=== PATIENT | male | born 1965 | race Caucasian/White ===

== ENCOUNTER → 2018-09-22 | Outpatient (CLI) | payer BC ==
[2018-09-22 10:53] LABS: HCT 46.5 % (39.0-53.0); HGB 15.5 gm/dL (13.0-17.5); MCH 30.6 pg (25.0-35.0); MCHC 33.3 g/dL (31.0-37.0); Mean Platelet Volume 7.9; Platelet Count 195 k/uL (150-450); RBC 5.05 m/uL (4.30-5.90); RDW 13.9 % (11.5-15.5); WBC 6.3 k/uL (3.8-10.6)
[2018-09-22 16:27] LABS: Albumin 4.7 g/dL (3.80-4.90); Albumin/Globulin Ratio 2.76 (1.60-3.17); Anion Gap 4.9 mmol/L (4.00-12.00); Calcium 8.8 mg/dL (8.7-10.3); Carbon Dioxide 29.1 mmol/L (21.6-31.8); Globulin 1.7 g/dL (1.6-3.3); LDL Cholesterol,Calculated 136.4 mg/dL (0.0-131.0); Potassium 4.3 mmol/L (3.5-5.5); Total Bilirubin 0.4 mg/dL (0.2-1.2); Total Protein 6.4 g/dL (6.2-8.2); VLDL Calculation 15.6 mg/dL (5.00-40.00)
== END ==
LOC: LABWHC1 09:58
PROVIDERS: ATTEND Internal Medicine
DX: Z00.00 Encounter for general adult medical examination without abnormal findings (principal)
CPT/HCPCS: 36415; 80053; 80061; 84153; 85027

== ENCOUNTER → 2020-10-21 | Outpatient (CLI) | payer BC ==
--- NOTE | 2020-10-21 18:36 | CT ---
EXAMINATION TYPE: CT sinus wo con DATE OF EXAM: 10/21/2020 COMPARISON: None HISTORY: Chronic sinusitis, polyps CT DLP: 420.40 mGycm CONTRAST: 0 mL of Isovue 300 The paranasal sinuses are examined in the axial plane at 2 mm thick sections. Reconstructed images i n the coronal plane were obtained. There is dental amalgam scatter artifact Thick mucosal thickening is seen in the bilateral maxillary sinuses. No air-fluid levels are evident. Retention cyst or polyp may be in the superior left maxillary sinus. Mucosal thickening is seen in e thmoid air cells extending into the frontal sinuses more so on the left. Left sphenoid sinuses small retention cyst or polyp. Right sphenoid sinus is partially opacified. The septum is evaluated. There is septal deviation to the right. The ostiomeatal units are obstructed bilaterally IMPRESSIONS: 1. Mucosal thickening throughout the paranasal sinuses discussed above. Chronic sinusitis and nasal polyposis could be considered.
== END | disposition home or self-care (01) ==
LOC: RADCTMAIN 17:56
PROVIDERS: ATTEND Otolaryngology
DX: J33.9 Nasal polyp, unspecified (principal); J32.9 Chronic sinusitis, unspecified
CPT/HCPCS: 70486

== ENCOUNTER → 2021-12-23 | Outpatient (CLI) | payer BC ==
--- NOTE | 2021-12-23 10:52 | CA ---
Exercise Stress Test Report Name: Ry Ghosh Exam Date: 12/23/2021 09:48 Exam Location: [place] Stress Ht (in): 67 Wt (lb): 165 BSA: 1.86 Ordering Phys: Renee Medina MD Referring Phys: Adam, Technologist: Louis Donohue Age: 56 Gender: M : 1965 Procedure CPT: Indications: Z82.49 FAMILY HX CARDIOVASC DISE ICD-10 Codes: Patient History: Medications: ATORVASTATIN Meds past 24 hrs: Pretest Chest Pain: STRESS TEST Eric Protocol Exercise Duration (min:sec): 12:[address] Depressions (mm): Angina Score: Elizabeth Score: Resting HR (bpm): 78 Peak HR (bpm): 149 Resting BP (mmHg): 131 / 86 Peak BP (mmHg): 205 / 102 MPHR: 163 Target HR: 139 % MPHR: 91 METS: 12.1 Total Dose: Peak Dose: Atropine: Double Product: 80564 BP Response: Stress Termination: Reached target heart rate Stress Symptoms: NO SYMPTOMS Stress Summary: ECG ANALYSIS Resting ECG: Stress ECG: CONCLUSIONS Patient exercised on a Eric protocol for 12 minutes Peak heart rate 149 beats a minute, peak blood pressure 205/102 mmHg, asymptomatic No ECG evidence for ischemia No arrhythmias Dr. William Basilio MD (Electronically Signed) Final Date: 23 December 2021 10:51
--- NOTE | 2021-12-23 13:12 | NM ---
EXAMINATION TYPE: NM stress cardiolite complete DATE OF EXAM: 12/23/2021 COMPARISON: NONE HISTORY: Z 82.49 TECHNIQUE: After the intravenous administration of 9.9 mCi Tc 99m Sestamibi - Rest images obtained 4 5 minutes post injection. The patient exercised using a SAKINA protocol and 1 minute prior to peak e xercise was injected with 24.5 mCi Tc 99m Sestamibi - Stress images obtained 15 minutes post injectio n. FINDINGS: Targeted heart rate was achieved during performance of the study. Review of stress and rest SPECT jenniffer ges demonstrates no distinct perfusion abnormality. Gated analysis shows normal wall motion with an estimated left ventricular ejection fraction of 70 %. IMPRESSION: No scintigraphic evidence for reversible ischemia, consider echocardiographic correlation for elevate d ejection fraction
== END | disposition home or self-care (01) ==
LOC: RADNMMAIN 08:28
PROVIDERS: ATTEND Internal Medicine
DX: Z09 Encounter for follow-up examination after completed treatment for conditions other than malignant neoplasm (principal); Z82.49 Family history of ischemic heart disease and other diseases of the circulatory system
CPT/HCPCS: 93017; 78452; A9500

== ENCOUNTER → 2022-03-02 | Outpatient (CLI) | payer BC ==
--- NOTE | 2022-03-03 09:49 | CT ---
EXAMINATION TYPE: CT sinus wo con CT DLP: 718.7 mGycm, Automated exposure control for dose reduction was used. DATE OF EXAM: 03/02/2022 4:30 PM COMPARISON: 10/21/2020. CLINICAL INDICATION:Male, 57 years old with history of J32.9 SINUSITIS, right nasal drainage CONTRAST: None. TECHNIQUE: Multiple thin axial images were obtained through the paranasal sinuses without the use of IV contrast. Additional coronal and sagittal reformatted images were submitted for evaluation. FINDINGS: Frontal sinuses: Normally developed. Mucosal thickening bilaterally. Frontal Recess: Opacified bilate rally. Modified Gayathri-Agapito Score: Right 1 = 1-25% Opacified, Left 1 = 1-25% Opacified Maxillary Sinuses: Normally developed. Mucosal thickening bilaterally. Modified [place] Score: Right 1 = 1-25% Opacified, Left 2 = 26-50% Opacified Maxillary Infundibula([facility]): Opacified bilaterally, No Srini cells identified. Modified Hawthorne-Agapito Score: Right 2 = Completely obstructed, Left 2 = Completely obstructed Ethmoid sinuses: Normally developed. Ethmoidal notch: Protected and abutting the lateral lamina. Modified Hawthorne-Agapito Score: Anterior Right 3 = 51-75% Opacified, Left 3 = 51-75% Opacified Posterior Right 3 = 51-75% Opacified, Left 3 = 51-75% Opacified Sphenoid sinuses: Normally developed mucosal thickening. There is sellar sphenoid sinus pneumatizatio n without evidence of dehiscence. No dehiscence of carotid canal. No evidence of optic nerve dehisce nce within the sphenoid sinus. No evidence of Onodi cells. Sphenoethmoidal recesses: Opacified bilat erally. Modified Gayathri-Agapito Score: Right 1 = 1-25% Opacified, Left 1 = 1-25% Opacified. Nasal septum: Within normal limits. Nasal Turbinates: Within normal limits. Mastoid air cells & middle ears: The air cells are clear. The middle ears are grossly unremarkable. Modified Soft tissues & Brain: Partially seen without gross abnormality. Globes are intact. Other: Cribriform plate demonstrates symmetric Keros classification type 2 cribriform plate. No evidence of bony dehiscence of skull base. Lamina papyracea is intact without evidence of remote orbital fracture or orbital prolapse into the e thmoid sinus. IMPRESSION: 1. Moderate to severe paranasal sinus disease. 2. Opacified ostiomeatal units, frontonasal and sphenoethmoidal recesses. 3. Opacification burden of / on the Modified Hawthorne-Agpaito scoring system.
== END | disposition home or self-care (01) ==
LOC: RADCTMAIN 15:51
PROVIDERS: ATTEND Urology
DX: J32.9 Chronic sinusitis, unspecified (principal)
CPT/HCPCS: 70486